=== PATIENT | male | born 1985 | race Caucasian/White ===

== ENCOUNTER 2019-01-25 19:04 | Emergency (ER) | payer MEDICAID ==
[2019-01-25] MEDS: SODIUM CHLORIDE 0.9% 1L BAG IV* (19:26)
[2019-01-25 19:30] LABS: ADD MAN DIFF? NO
[2019-01-25 19:35] LABS: WHITE BLOOD COUNT 14.4 10^3/ul (4.8-10.8)
[2019-01-25 19:35] LABS: BASOPHILS % 0.3 % (0.0-2.0); EOSINOPHILS % 0.1 % (0.0-7.0); HEMATOCRIT 46.4 % (42.0-52.0); HEMOGLOBIN 15.8 g/dl (14.0-18.0); LYMPHOCYTES # 0.8 10^3/ul (0.8-2.9); LYMPHOCYTES % 5.4 % (15.0-51.0); MEAN CORPUSCULAR HEMOGLOBIN 30.2 pg (29.0-33.0); MEAN CORPUSCULAR HGB CONC 34.1 g/dl (32.0-37.0); MEAN CORPUSCULAR VOLUME 88.7 fl (82.0-101.0); MEAN PLATELET VOLUME 9.3 fl (7.4-10.4); MONOCYTE # 0.6 10^3/ul (0.3-0.9); MONOCYTES % 4.2 % (0.0-11.0); NEUTROPHIL # 12.9 10^3/ul (1.6-7.5); NEUTROPHILS % 89.5 % (39.0-77.0); PLATELET COUNT 222 10^3/UL (140-415); RED BLOOD COUNT 5.23 10^6/ul (4.70-6.10); RED CELL DISTRIBUTION WIDTH 11.9 % (11.5-14.5)
[2019-01-25 19:36] LABS: URINE BLOOD (Dip) POC Negative (NEGATIVE); URINE GLUCOSE (Dip) POC Negative (NEGATIVE); URINE KETONES (Dip) POC Trace (NEGATIVE); URINE LEUKOCYTE EST (Dip) POC Negative (NEGATIVE); URINE NITRITE (Dip) POC Negative (NEGATIVE); URINE TOTAL PROTEIN POC 2+ (NEGATIVE)
[2019-01-25 19:36] LABS: URINE PH (Dip) POC 7.5 (5.0-8.5)
[2019-01-25] MEDS: PIPER-TAZO 3.375 GM IV (PMX) 100 ML IVPB (19:36)
[2019-01-25 19:47] LABS: ADD UMIC YES; UR ASCORBIC ACID NEGATIVE (NEGATIVE); UR BILIRUBIN (Dip) NEGATIVE (NEGATIVE); UR BLOOD (Dip) NEGATIVE (NEGATIVE); UR CLARITY CLEAR (CLEAR); UR COLOR AMBER (YELLOW); UR GLUCOSE (Dip) NEGATIVE (NEGATIVE); UR KETONES (Dip) NEGATIVE (NEGATIVE); UR LEUKOCYTE ESTERASE (Dip) NEGATIVE Leu/ul (NEGATIVE); UR MUCUS FEW /HPF (NONE SEEN); UR NITRITE (Dip) NEGATIVE (NEGATIVE); UR RBC 1 /HPF (0-5); UR SPECIFIC GRAVITY (Dip) 1.032 (1.003-1.030); UR TOTAL PROTEIN (Dip) 1+ mg/dl (NEGATIVE); UR UROBILINOGEN (Dip) 2+ mg/dL (NEGATIVE); UR WBC 1 /HPF (0-5)
[2019-01-25 19:55] LABS: ALANINE AMINOTRANSFERASE 46 IU/L (13-69); ALBUMIN 4.5 g/dl (3.3-4.9); ALBUMIN/GLOBULIN RATIO 1.32; ALKALINE PHOSPHATASE 109 IU/L (42-121); ANION GAP 10 (5-13); ASPARTATE AMINO TRANSFERASE 56 IU/L (15-46); BILIRUBIN,INDIRECT 0.8 mg/dl (0-1.1); BILIRUBIN,TOTAL 0.8 mg/dl (0.2-1.3); BLOOD UREA NITROGEN 10 mg/dl (7-20); CALCIUM 9.2 mg/dl (8.4-10.2); CARBON DIOXIDE 25 mmol/L (21-31); CHLORIDE 104 mmol/L (97-110); CREATININE 0.93 mg/dl (0.61-1.24); Estimated GFR > 60 mL/min (>60); GLUCOSE 114 mg/dl (70-220); SODIUM 139 mmol/L (135-144); TOTAL PROTEIN 7.9 g/dl (6.1-8.1)
[2019-01-25] MEDS: ONDANSETRON 4 MG INJ IV (19:59)
[2019-01-25] MEDS: morphine 2 MG INJ IV (19:59)
[2019-01-25] MEDS: ACETAMINOPHEN 325 MG TAB PO (19:59)
[2019-01-25 21:51] LABS: LACTIC ACID 1.4 mmol/L (0.5-2.0)
[2019-01-25] MEDS: IBUPROFEN 600 MG TAB PO (22:13)
[2019-01-25] MEDS: HYDROmorphONE 0.5 MG/0.5 ML SYG IV (22:13)
[2019-01-25] MEDS: KETOROLAC 30 MG INJ IV (22:59)
[2019-01-25] MEDS: PANTOPRAZOLE 40 MG INJ IV (22:59)
[2019-01-25] MEDS: LIDOCAINE/MYLANTA 40 ML BTL PO (23:05)
[2019-01-26] MEDS ORDERED: DEXTROSE 5%-0.45% NACL 1,000 ML IV (00:21)
[2019-01-26 00:28] LABS: LACTIC ACID 0.8 mmol/L (0.5-2.0)
[2019-01-26] MEDS ORDERED: NACL 0.9% 3 ML SYG IV (00:30)
[2019-01-26] MEDS ORDERED: KETOROLAC 30 MG INJ IV (00:30)
[2019-01-26] MEDS ORDERED: ONDANSETRON 4 MG INJ IV (00:30)
[2019-01-26] MEDS ORDERED: PIPER-TAZO 3.375 GM IV (PMX) 100 ML IVPB (00:30)
== END 2019-01-26 01:27 | disposition left against medical advice (07) ==
LOC: E/R 01-26 01:27
DX: K57.92 Diverticulitis of intestine, part unspecified, without perforation or abscess without bleeding (principal); R65.20 Severe sepsis without septic shock; A41.9 Sepsis, unspecified organism
CPT/HCPCS: 36415; 74176; 80053; 81001; 81003; 83605; 85025; 87040-91; 87086; 93005; 96374; 96375; 99285-25